=== PATIENT | male | born 1945 | race Caucasian/White ===

== ENCOUNTER 2019-03-19 11:11 | Emergency (ER) | payer MEDICARE, BC ==
--- NOTE | 2019-03-19 11:25 | EDM.PDOC ---
ED HPI GENERAL MEDICAL PROBLEM - General Chief Complaint: Diabetic Complaint Stated Complaint: LOW BLOOD SUGARS, GENERAL WEAKNESS Time Seen by Provider: 03/19/19 11:15 Source of Information: Reports: Patient History Limitations: Reports: Altered Mental Status - History of Present Illness INITIAL COMMENTS - FREE TEXT/NARRATIVE: Transported here via ambulance today after he was found by neighbors or possibly called for assistance details vary. He admits to being noncompliant with his medications for several weeks stating he has not eaten for several days. In this fact his glucose was 48 per ambulance IV was initiated and received D10 with blood sugar dropping slightly on a 10 minute recheck. D10 was infused continuously in route with a glucose level here in the emergency department 74. He is slightly more appropriate to conversation but is very unkempt in his presentation and varying factors in story and the complexity. 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 Acknowledges that he has not used medications for several days possibly weeks. He complains of leg pain and mild respiratory issues. Acknowledges decrease in appetite stating has been maintaining good fluid intake , predominantly water throughout the days. Denies any recent alcohol intake for several weeks. 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 (see below) (IV D10) Past Medical History HEENT History: Reports: Hard of Hearing Cardiovascular History: Reports: Afib, Heart Murmur Respiratory History: Reports: None Gastrointestinal History: Reports: None Genitourinary History: Reports: Urinary Incontinence Musculoskeletal History: Reports: None Neurological History: Reports: Neuropathy, Diabetic, Neuropathy, Peripheral Psychiatric History: Reports: None Endocrine/Metabolic History: Reports: Diabetes, Type II, Hypothyroidism Hematologic History: Reports: Anticoagulation Therapy Immunologic History: Reports: None Oncologic (Cancer) History: Reports: None Social & Family History - Family History Family Medical History: Noncontributory ED ROS GENERAL - Review of Systems Review Of Systems: See Below Constitutional: Reports: Weakness HEENT: Reports: No Symptoms Respiratory: Reports: No Symptoms Cardiovascular: Reports: No Symptoms, Edema. Denies: Chest Pain, Dyspnea on Exertion, Palpitations Endocrine: Reports: No Symptoms GI/Abdominal: Reports: No Symptoms. Denies: Melena : Reports: Incontinence Musculoskeletal: Reports: No Symptoms, Other (Leg pain) Skin: Reports: Wound (Lower extremities) Neurological: Reports: Weakness Psychiatric: Reports: No Symptoms Hematologic/Lymphatic: Reports: No Symptoms (He is aware of). Denies: Easy Bleeding, Easy Bruising (Has not been compliant with medication) Immunologic: Reports: No Symptoms ED EXAM, GENERAL - Physical Exam Exam: See Below Free Text/Narrative:: Seemingly appropriate but does have some unanswered questions as to why non- compliancy and Y he has not been eating. Denies drug use denies any risk behavior. States he is unsure of some of his medical diagnosis but notes that he had issues with fluid and wants to be monitored carefully for that. General Appearance: Alert, WD/WN, No Apparent Distress Ears: Normal External Exam, Hearing Grossly Normal Nose: Normal Inspection, Normal Mucosa, No Blood Throat/Mouth: Normal Inspection, Normal Oropharynx. No: Inflammation Head: Atraumatic, Normocephalic Neck: Normal Inspection Respiratory/Chest: No Respiratory Distress, Lungs Clear, No Accessory Muscle Use , Chest Non-Tender Cardiovascular: Normal Peripheral Pulses, Regular Rate, Rhythm, No Murmur GI/Abdominal: Normal Bowel Sounds, Soft, Non-Tender, No Organomegaly, No Distention, No Abnormal Bruit, No Mass (Male) Exam: Other (Significant uric crystals to the genitalia upon removal of dependence). No: Normal Prostate (Likely enlarged) Rectal (Males) Exam: Normal Rectal Tone, Heme + Stool. No: Prostate Normal ( Moderately enlarged) Back Exam: Normal Inspection, Full Range of Motion Extremities: Pedal Edema, Redness (Areas of weeping as well as open integument. Left foot shows extensive wrinkling furling to the base of the left foot as if it been soaked in moisture for a prolonged period of time. All nails extremely onychomycotic in appearance. Discomfort negative Homans sign bilateral) Neurological: Alert, Oriented Psychiatric: Normal Affect, Normal Mood Skin Exam: Warm, Erythema, Rash. No: Intact Lymphatic: No Adenopathy EKG INTERPRETATION EKG Date: 03/19/19 Rhythm: NSR Rate (Beats/Min): 74 ST-T: Depressed Comparison: NA - No Prior EKG Course - Orders/Labs/Meds Orders: Active Orders 24 hr Category Date Time Status EKG Documentation Completion [RC] ASDIRECTED Care 03/19/19 11:33 Active Lemons Catheter Insertion [Insert Urinary Catheter] [OM. Care 03/19/19 11:45 Ordered PC] Q24H Peripheral IV Care [RC] . DIRECTED Care 03/19/19 15:32 Active Urinary Catheter Assessment [RC] ASDIRECTED Care 03/19/19 11:38 Active CULTURE BLOOD [BC] Stat Lab 03/19/19 12:42 Received CULTURE WOUND + SMEAR [RM] Stat Lab 03/19/19 13:00 Received CULTURE WOUND + SMEAR [RM] Stat Lab 03/19/19 13:00 Received CULTURE WOUND + SMEAR [RM] Stat Lab 03/19/19 13:00 Received Dextrose 5%-0.9% NaCl [Dextrose 5%-Normal Saline] 1,000 Med 03/19/19 16:00 Active ml IV ASDIRECTED Sodium Chloride 0.9% [Normal Saline] 1,000 ml Med 03/19/19 12:45 Active IV ASDIRECTED Sodium Chloride 0.9% [Saline Flush] Med 03/19/19 15:32 Active 10 ml FLUSH Q8HR PRN Peripheral IV Insertion Adult [OM.PC] Urgent Oth 03/19/19 15:32 Ordered EKG 12 Lead [EK] Routine Ther 03/19/19 11:33 Ordered Medication Orders Sodium Chloride (Normal Saline) 1,000 mls @ 50 mls/hr IV ASDIRECTED HUY Last Admin: 03/19/19 12:51 Dose: 50 mls/hr Dextrose/Sodium Chloride (Dextrose 5%-Normal Saline) 1,000 mls @ 250 mls/hr IV ASDIRECTED HUY Sodium Chloride (Saline Flush) 10 ml FLUSH Q8HR PRN PRN Reason: keep vein open Labs: Laboratory Tests 03/19/19 03/19/19 03/19/19 Range/Units 12:01 12:20 12:20 WBC (5.00-10.00) 10^3/uL RBC (4.50-6.00) 10^6/uL Hgb (13.0-17.0) g/dL Hct (40.0-52.0) % MCV (82.0-92.0) fL MCH (27.0-31.0) pg MCHC (32.0-36.0) g/dL RDW (11.5-14.5) % Plt Count (150-400) 10^3/uL MPV (7.4-10.4) fL Immature Gran % (Auto) (0.0-5.0) % Neut % (Auto) (50.0-70.0) % Lymph % (Auto) (20.0-40.0) % Wilkin % (Auto) (2.0-8.0) % Eos % (Auto) (1.0-3.0) % Baso % (Auto) (0.0-1.0) % Immature Gran # (Auto) (0.00-0.50) 10^3/uL Neut # (Auto) (2.50-7.00) 10^3/uL Lymph # (Auto) (1.00-4.00) 10^3/uL Wilkin # (Auto) (0.10-0.80) 10^3/uL Eos # (Auto) (0.10-0.30) 10^3/uL Baso # (Auto) (0.00-0.10) 10^3/uL D-Dimer, Quantitative (<400) ng/mL Sodium (136-145) mmol/L Potassium (3.3-5.3) mmol/L Chloride (98-115) mmol/L Carbon Dioxide (21.0-32.0) mmol/L Anion Gap (5-15) mmol/L BUN (6-25) mg/dL Creatinine (0.51-1.17) mg/dL Est Cr Clr Drug Dosing Estimated GFR (MDRD) mL/min Glucose (75 - 99) mg/dL POC Glucose 258 H (74-106) mg/dl Hemoglobin A1c (4.3-5.7) % Lactic Acid (0.4-2.0) mmol/L Calcium (8.7-10.3) mg/dL Phosphorus (2.6-4.7) mg/dL Magnesium (1.8-2.4) mg/dL Total Bilirubin (0.2-1.0) mg/dL AST (15-37) U/L ALT (12-78) U/L Alkaline Phosphatase (46-116) IU/L Creatine Kinase (26-276) U/L CK-MB (CK-2) (0.00-4.30) ng/mL Troponin I (0.00-0.070) ng/mL C-Reactive Protein (0.0-0.9) mg/dL Total Protein (6.4-8.2) g/dL Albumin (3.00-4.80) g/dL TSH, Ultra Sensitive (0.340-4.820) uIU/mL Specimen Type Urincath Urine Color Dark yellow H (YELLOW) Urine Appearance Clear (CLEAR) Urine pH 5.0 (5.0-9.0) Ur Specific Jeddo 1.010 (1.005-1.030) Urine Protein Negative (NEGATIVE) mg/dL Urine Glucose (UA) Negative (NEGATIVE) mg/dL Urine Ketones Negative (NEGATIVE) mg/dL Urine Occult Blood Negative (NEGATIVE) Urine Nitrite Negative (NEGATIVE) Urine Bilirubin Negative (NEGATIVE) Urine Urobilinogen 0.2 (0.2-1.0) E.U./dL Ur Leukocyte Esterase Negative (NEGATIVE) Urine RBC Not seen (0-5) /HPF Urine WBC Not seen (0-5) /HPF Ur Epithelial Cells Few /LPF Amorphous Sediment Moderate H (0/HPF) /HPF Urine Bacteria Not seen (NONE TO FEW) /HPF Hyaline Casts Moderate H (NEGATIVE) /LPF Urine Mucus Few H (NEGATIVE) /LPF Urine Opiates Screen Negative (NEGATIVE) Ur Oxycodone Screen Negative (NEGATIVE) Urine Methadone Screen Negative (NEGATIVE) Ur Propoxyphene Screen Negative (NEGATIVE) Ur Barbiturates Screen Negative (NEGATIVE) Ur Tricyclics Screen Negative (NEGATIVE) Ur Phencyclidine Scrn Negative (NEGATIVE) Ur Amphetamine Screen Negative (NEGATIVE) U Methamphetamines Scrn Negative (NEGATIVE) U Benzodiazepines Scrn Negative (NEGATIVE) U Cocaine Metab Screen Negative (NEGATIVE) U Marijuana (THC) Screen Negative (NEGATIVE) 03/19/19 03/19/19 03/19/19 Range/Units 12:42 12:42 12:42 WBC 7.42 (5.00-10.00) 10^3/uL RBC 3.89 L (4.50-6.00) 10^6/uL Hgb 11.0 L (13.0-17.0) g/dL Hct 34.7 L (40.0-52.0) % MCV 89.2 (82.0-92.0) fL MCH 28.3 (27.0-31.0) pg MCHC 31.7 L (32.0-36.0) g/dL RDW 15.3 H (11.5-14.5) % Plt Count 226 (150-400) 10^3/uL MPV 10.9 H (7.4-10.4) fL Immature Gran % (Auto) 0.1 (0.0-5.0) % Neut % (Auto) 89.5 H (50.0-70.0) % Lymph % (Auto) 5.9 L (20.0-40.0) % Wilkin % (Auto) 4.4 (2.0-8.0) % Eos % (Auto) 0.0 L (1.0-3.0) % Baso % (Auto) 0.1 (0.0-1.0) % Immature Gran # (Auto) 0.01 (0.00-0.50) 10^3/uL Neut # (Auto) 6.63 (2.50-7.00) 10^3/uL Lymph # (Auto) 0.44 L (1.00-4.00) 10^3/uL Wilkin # (Auto) 0.33 (0.10-0.80) 10^3/uL Eos # (Auto) 0.00 L (0.10-0.30) 10^3/uL Baso # (Auto) 0.01 (0.00-0.10) 10^3/uL D-Dimer, Quantitative (<400) ng/mL Sodium 135 L (136-145) mmol/L Potassium 4.4 (3.3-5.3) mmol/L Chloride 97 L (98-115) mmol/L Carbon Dioxide 20.2 L (21.0-32.0) mmol/L Anion Gap 22.2 H (5-15) mmol/L BUN 82 H* (6-25) mg/dL Creatinine 4.54 H (0.51-1.17) mg/dL Est Cr Clr Drug Dosing TNP Estimated GFR (MDRD) 13 mL/min Glucose 317 H (75 - 99) mg/dL POC Glucose (74-106) mg/dl Hemoglobin A1c 6.9 H (4.3-5.7) % Lactic Acid 7.5 H (0.4-2.0) mmol/L Calcium 8.2 L (8.7-10.3) mg/dL Phosphorus (2.6-4.7) mg/dL Magnesium (1.8-2.4) mg/dL Total Bilirubin 2.0 H (0.2-1.0) mg/dL AST 66 H (15-37) U/L ALT 104 H (12-78) U/L Alkaline Phosphatase 221 H (46-116) IU/L Creatine Kinase 404 H* (26-276) U/L CK-MB (CK-2) 5.40 H* (0.00-4.30) ng/mL Troponin I 0.90 H* (0.00-0.070) ng/mL C-Reactive Protein 21.6 H (0.0-0.9) mg/dL Total Protein 5.6 L (6.4-8.2) g/dL Albumin 2.33 L (3.00-4.80) g/dL TSH, Ultra Sensitive 13.680 H (0.340-4.820) uIU/mL Specimen Type Urine Color (YELLOW) Urine Appearance (CLEAR) Urine pH (5.0-9.0) Ur Specific Jeddo (1.005-1.030) Urine Protein (NEGATIVE) mg/dL Urine Glucose (UA) (NEGATIVE) mg/dL Urine Ketones (NEGATIVE) mg/dL Urine Occult Blood (NEGATIVE) Urine Nitrite (NEGATIVE) Urine Bilirubin (NEGATIVE) Urine Urobilinogen (0.2-1.0) E.U./dL Ur Leukocyte Esterase (NEGATIVE) Urine RBC (0-5) /HPF Urine WBC (0-5) /HPF Ur Epithelial Cells /LPF Amorphous Sediment (0/HPF) /HPF Urine Bacteria (NONE TO FEW) /HPF Hyaline Casts (NEGATIVE) /LPF Urine Mucus (NEGATIVE) /LPF Urine Opiates Screen (NEGATIVE) Ur Oxycodone Screen (NEGATIVE) Urine Methadone Screen (NEGATIVE) Ur Propoxyphene Screen (NEGATIVE) Ur Barbiturates Screen (NEGATIVE) Ur Tricyclics Screen (NEGATIVE) Ur Phencyclidine Scrn (NEGATIVE) Ur Amphetamine Screen (NEGATIVE) U Methamphetamines Scrn (NEGATIVE) U Benzodiazepines Scrn (NEGATIVE) U Cocaine Metab Screen (NEGATIVE) U Marijuana (THC) Screen (NEGATIVE) 03/19/19 03/19/19 03/19/19 Range/Units 12:42 12:42 15:40 WBC (5.00-10.00) 10^3/uL RBC (4.50-6.00) 10^6/uL Hgb (13.0-17.0) g/dL Hct (40.0-52.0) % MCV (82.0-92.0) fL MCH (27.0-31.0) pg MCHC (32.0-36.0) g/dL RDW (11.5-14.5) % Plt Count (150-400) 10^3/uL MPV (7.4-10.4) fL Immature Gran % (Auto) (0.0-5.0) % Neut % (Auto) (50.0-70.0) % Lymph % (Auto) (20.0-40.0) % Wilkin % (Auto) (2.0-8.0) % Eos % (Auto) (1.0-3.0) % Baso % (Auto) (0.0-1.0) % Immature Gran # (Auto) (0.00-0.50) 10^3/uL Neut # (Auto) (2.50-7.00) 10^3/uL Lymph # (Auto) (1.00-4.00) 10^3/uL Wilkin # (Auto) (0.10-0.80) 10^3/uL Eos # (Auto) (0.10-0.30) 10^3/uL Baso # (Auto) (0.00-0.10) 10^3/uL D-Dimer, Quantitative 201 (<400) ng/mL Sodium (136-145) mmol/L Potassium (3.3-5.3) mmol/L Chloride (98-115) mmol/L Carbon Dioxide (21.0-32.0) mmol/L Anion Gap (5-15) mmol/L BUN (6-25) mg/dL Creatinine (0.51-1.17) mg/dL Est Cr Clr Drug Dosing Estimated GFR (MDRD) mL/min Glucose (75 - 99) mg/dL POC Glucose 223 H (74-106) mg/dl Hemoglobin A1c (4.3-5.7) % Lactic Acid (0.4-2.0) mmol/L Calcium (8.7-10.3) mg/dL Phosphorus 6.5 H (2.6-4.7) mg/dL Magnesium 2.7 H (1.8-2.4) mg/dL Total Bilirubin (0.2-1.0) mg/dL AST (15-37) U/L ALT (12-78) U/L Alkaline Phosphatase (46-116) IU/L Creatine Kinase (26-276) U/L CK-MB (CK-2) (0.00-4.30) ng/mL Troponin I (0.00-0.070) ng/mL C-Reactive Protein (0.0-0.9) mg/dL Total Protein (6.4-8.2) g/dL Albumin (3.00-4.80) g/dL TSH, Ultra Sensitive (0.340-4.820) uIU/mL Specimen Type Urine Color (YELLOW) Urine Appearance (CLEAR) Urine pH (5.0-9.0) Ur Specific Jeddo (1.005-1.030) Urine Protein (NEGATIVE) mg/dL Urine Glucose (UA) (NEGATIVE) mg/dL Urine Ketones (NEGATIVE) mg/dL Urine Occult Blood (NEGATIVE) Urine Nitrite (NEGATIVE) Urine Bilirubin (NEGATIVE) Urine Urobilinogen (0.2-1.0) E.U./dL Ur Leukocyte Esterase (NEGATIVE) Urine RBC (0-5) /HPF Urine WBC (0-5) /HPF Ur Epithelial Cells /LPF Amorphous Sediment (0/HPF) /HPF Urine Bacteria (NONE TO FEW) /HPF Hyaline Casts (NEGATIVE) /LPF Urine Mucus (NEGATIVE) /LPF Urine Opiates Screen (NEGATIVE) Ur Oxycodone Screen (NEGATIVE) Urine Methadone Screen (NEGATIVE) Ur Propoxyphene Screen (NEGATIVE) Ur Barbiturates Screen (NEGATIVE) Ur Tricyclics Screen (NEGATIVE) Ur Phencyclidine Scrn (NEGATIVE) Ur Amphetamine Screen (NEGATIVE) U Methamphetamines Scrn (NEGATIVE) U Benzodiazepines Scrn (NEGATIVE) U Cocaine Metab Screen (NEGATIVE) U Marijuana (THC) Screen (NEGATIVE) Meds: Medications Generic Name Dose Route Start Last Admin Trade Name Freq PRN Reason Stop Dose Admin Sodium Chloride 1,000 mls @ 50 mls/hr 03/19/19 12:45 03/19/19 12:51 Normal Saline IV 50 mls/hr ASDIRECTED HUY Administration Dextrose/Sodium Chloride 1,000 mls @ 250 mls/hr 03/19/19 16:00 Dextrose 5%-Normal Saline IV ASDIRECTED HUY Sodium Chloride 10 ml 03/19/19 15:32 Saline Flush FLUSH Q8HR PRN keep vein open Discontinued Medications Generic Name Dose Route Start Last Admin Trade Name Nacho PRN Reason Stop Dose Admin Sodium Chloride 1,000 mls @ 999 mls/hr 03/19/19 15:31 Normal Saline IV 03/19/19 16:31 .BOLUS ONE Departure - Departure Time of Disposition: 16:48 Disposition: DC/Tfer to Acute Hospital 02 Condition: Poor Clinical Impression: Diabetes, Noncompliance, Chronic renal disease, stage 3, moderately decreased glomerular filtration rate between 30-59 mL/min/1.73 square meter, Electrolyte imbalance, Cardiac enzymes elevated, Impaired integumentary status - Discharge Information *PRESCRIPTION DRUG MONITORING PROGRAM REVIEWED*: Not Applicable *COPY OF PRESCRIPTION DRUG MONITORING REPORT IN PATIENT DARIEN: Not Applicable Referrals: Татьяна Velazquez PA-C [Primary Care Provider] - Forms: ED Department Discharge Additional Instructions: Will be transferred [facility] with Dr. Myrna barrios. Lehr Stripper in consult request 3 L total fluid bolus with D5 normal saline at 250 an hour maintenance thereafter. - Problem List & Annotations (1) Diabetes SNOMED Code(s): 82668365 Code(s): E11.9 - TYPE 2 DIABETES MELLITUS WITHOUT COMPLICATIONS Status: Chronic Priority: Medium Current Visit: Yes Qualifiers: Diabetes mellitus type: type 2 Diabetes mellitus complication status: with kidney complications Diabetes mellitus complication detail: with chronic kidney disease Chronic kidney disease stage: stage 4 (severe) (2) Hypoglycemia SNOMED Code(s): 038949335 Code(s): E16.2 - HYPOGLYCEMIA, UNSPECIFIED Status: Resolved Priority: Medium Current Visit: Yes (3) Noncompliance SNOMED Code(s): 4167579 Code(s): Z91.19 - PATIENT'S NONCOMPLIANCE W OTH MEDICAL TREATMENT AND REGIMEN Status: Chronic Priority: High Current Visit: Yes (4) Impaired integumentary status SNOMED Code(s): 153310375 Code(s): R23.9 - UNSPECIFIED SKIN CHANGES Status: Acute Priority: Medium Current Visit: Yes (5) Chronic renal disease, stage 3, moderately decreased glomerular filtration rate between 30-59 mL/min/1.73 square meter SNOMED Code(s): 587637607 Code(s): N18.3 - CHRONIC KIDNEY DISEASE, STAGE 3 (MODERATE) Status: Chronic Priority: High Current Visit: Yes (6) Electrolyte imbalance SNOMED Code(s): 727899698 Code(s): E87.8 - OTH DISORDERS OF ELECTROLYTE AND FLUID BALANCE, NEC Status : Acute Priority: High Current Visit: Yes (7) Cardiac enzymes elevated SNOMED Code(s): 885043123 Code(s): R74.8 - ABNORMAL LEVELS OF OTHER SERUM ENZYMES Status: Acute Priority: High Current Visit: Yes - Problem List Review Problem List Initiated/Reviewed/Updated: Yes - My Orders Last 24 Hours: My Active Orders 03/19/19 11:33 EKG Documentation Completion [RC] ASDIRECTED EKG 12 Lead [EK] Routine 03/19/19 11:38 Urinary Catheter Assessment [RC] ASDIRECTED 03/19/19 11:45 Lemons Catheter Insertion [Insert Urinary Catheter] [OM.PC] Q24H 03/19/19 12:42 CULTURE BLOOD [BC] Stat 03/19/19 12:45 Sodium Chloride 0.9% [Normal Saline] 1,000 ml IV ASDIRECTED 03/19/19 13:00 CULTURE WOUND + SMEAR [RM] Stat CULTURE WOUND + SMEAR [RM] Stat CULTURE WOUND + SMEAR [RM] Stat 03/19/19 15:32 Peripheral IV Care [RC] . DIRECTED Sodium Chloride 0.9% [Saline Flush] 10 ml FLUSH Q8HR PRN Peripheral IV Insertion Adult [OM.PC] Urgent 03/19/19 16:00 Dextrose 5%-0.9% NaCl [Dextrose 5%-Normal Saline] 1,000 ml IV ASDIRECTED - Assessment/Plan Last 24 Hours: My Active Orders 03/19/19 11:33 EKG Documentation Completion [RC] ASDIRECTED EKG 12 Lead [EK] Routine 03/19/19 11:38 Urinary Catheter Assessment [RC] ASDIRECTED 03/19/19 11:45 Lemons Catheter Insertion [Insert Urinary Catheter] [OM.PC] Q24H 03/19/19 12:42 CULTURE BLOOD [BC] Stat 03/19/19 12:45 Sodium Chloride 0.9% [Normal Saline] 1,000 ml IV ASDIRECTED 03/19/19 13:00 CULTURE WOUND + SMEAR [RM] Stat CULTURE WOUND + SMEAR [RM] Stat CULTURE WOUND + SMEAR [RM] Stat 03/19/19 15:32 Peripheral IV Care [RC] . DIRECTED Sodium Chloride 0.9% [Saline Flush] 10 ml FLUSH Q8HR PRN Peripheral IV Insertion Adult [OM.PC] Urgent 03/19/19 16:00 Dextrose 5%-0.9% NaCl [Dextrose 5%-Normal Saline] 1,000 ml IV ASDIRECTED Plan: Consults via phone with transfer accepted by Dr. Norris to [facility]. Second IV will be restarted with an additional liter of fluid infused bilateral with 250 per hour rate of D5 0.9 normal saline to be maintained in route.
[2019-03-19] MEDS: Sodium Chloride 0.9% 10 ML Syringe FLUSH PRN ×2 (11:45→15:45)
--- NOTE | 2019-03-19 12:16 | CR ---
[id number] RAD/RAD Chest PA or AP 1V EXAM: RAD Chest PA or AP 1V INDICATION: DESATURATION. COMPARISON: None. DISCUSSION: Cardiomediastinal silhouette is enlarged. No infiltrate, effusion, pneumothorax, or edema. Pulmonary hyperinflation. IMPRESSION: Pulmonary hyperinflation. No definite acute cardiopulmonary findings. Blair Orourke DO 03/19/19 [phone] Thank you for allowing us to participate in the care of your patient.
[2019-03-19] MEDS ORDERED: Sodium Chloride 0.9% 1,000 ML IV SCH (12:45)
[2019-03-19 13:18] LABS: BARBITURATE SCREEN,URINE NEGATIVE (NEGATIVE); BENZODIAZEPINES SCREEN,URINE NEGATIVE (NEGATIVE); TCA SCREEN,URINE NEGATIVE (NEGATIVE); THC SCREEN,URINE 50 NG/ML NEGATIVE (NEGATIVE)
[2019-03-19 13:24] LABS: HEMOGLOBIN A1C 6.9 % (4.3-5.7)
[2019-03-19 13:41] LABS: ANION GAP 22.2 mmol/L (5-15); CHLORIDE,CL 97 mmol/L (98-115); SODIUM,NA 135 mmol/L (136-145)
[2019-03-19] MEDS ORDERED: Sodium Chloride 0.9% 1,000 ML IV ONE ×2 (15:31→16:00)
[2019-03-19] MEDS ORDERED: Dextrose 5%-0.9% NaCl 1,000 ML IV SCH (16:00)
== END 2019-03-19 17:05 ==
LOC: KA.ED 11:11
DX: E11.22 Type 2 diabetes mellitus with diabetic chronic kidney disease (principal); N18.3 Chronic kidney disease, stage 3 (moderate); E87.8 Other disorders of electrolyte and fluid balance, not elsewhere classified; R74.8 Abnormal levels of other serum enzymes; R23.9 Unspecified skin changes; E11.42 Type 2 diabetes mellitus with diabetic polyneuropathy; Z91.19 Patient's noncompliance with other medical treatment and regimen
CPT/HCPCS: 36415; 51702; 71045; 80053; 80305; 81001; 82272; 82550; 82553; 82962; 83036; 83605; 83735; 84100; 84443; 84484; 85025; 85379; 86140; 87040; 87070; 87205; 93005; 96361; 96374; 99285; J7030; J7042; 99284